=== PATIENT | male | born 1950 | race Caucasian/White ===

== ENCOUNTER 2018-01-28 13:49 | Emergency (ER) | payer MEDICARE, BC ==
[~2018-01-28] VITALS: Ht 177.8 cm; Wt 77.1 kg
[2018-01-28 14:20] LABS: BASOPHILS % (AUTO) 0.5 % (0.0-2.0); EOSINOPHILS % (AUTO) 0.8 % (0.0-6.0); HEMATOCRIT 38 % (39-51); HEMOGLOBIN 12.8 g/dL (13.5-17.5); LYMPHOCYTES # (AUTO) 1.3 /CMM (0.8-4.8); LYMPHOCYTES % (AUTO) 28.7 % (20.0-44.0); MEAN CORPUSCULAR HEMOGLOBIN 33 PG (26.0-33.0); MEAN CORPUSCULAR HGB CONC 34 g/dl (31.0-36.0); MEAN CORPUSCULAR VOLUME 97 fL (80-96); MONOCYTES # (AUTO) 0.6 /CMM (0.1-1.30); MONOCYTES % (AUTO) 12.2 % (2.0-12.0); NEUTROPHILS # (AUTO) 2.7 /CMM (1.8-8.9); NEUTROPHILS % (AUTO) 57.8 % (43.0-81.0); PLATELET COUNT (AUTO) 180 /CMM (150-450); RDW COEFFICIENT OF VARIATION 13.2 (11.5-15.0); RED BLOOD CELL COUNT(AUTO) 3.89 MIL/uL (4.5-6.0); WHITE BLOOD COUNT (AUTO) 4.6 K/uL (4.3-11.0)
[2018-01-28 14:29] LABS: CALCIUM, SERUM 8.4 mg/dL (8.5-10.1); CARBON DIOXIDE 17 mmol/L (21-32); CHLORIDE 105 mmol/L (98-107); GLUCOSE 121 mg/dL (74-106); SODIUM SERUM 136 mmol/L (136-145); UREA NITROGEN, BLOOD 19 mg/dL (7-18)
[2018-01-28] MEDS ORDERED: IV NS 0.9% 1,000 ML IV ONE (14:30)
[2018-01-28 14:39] LABS: TROPONIN I < 0.017 ng/mL (0.00-0.056)
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
[2018-01-28] MEDS ORDERED: POTASSIUM CHLORIDE 20 MEQ TAB.PRT.SR PO ONE ×2 (15:30→15:40)
[2018-01-28 16:35] VITALS: BP 137/78
--- NOTE | 2018-01-28 16:36 | NUR ---
Patient discharged to home in stable condition. Written and verbal after care instructions given. Patient verbalizes understanding of instruction.IV removed. Catheter intact and site benign. Pressure and 4x4 applied to site. No bleeding noted.
--- NOTE | 2018-02-11 10:23 | NUR ---
LATE ENTRY: 0.9% NaCl 1000 ml started at 1427(01/28/18) - end time =1527
== END 2018-01-28 16:37 | disposition home or self-care (01) ==
LOC: ER 13:53
DX: S01.01XA Laceration without foreign body of scalp, initial encounter (principal); R55 Syncope and collapse; K50.90 Crohn's disease, unspecified, without complications; Z98.890 Other specified postprocedural states; V43.52XA Car driver injured in collision with other type car in traffic accident, initial encounter; Y93.89 Activity, other specified; Y92.412 Parkway as the place of occurrence of the external cause; Y99.8 Other external cause status
CPT/HCPCS: 36415; 71045-TC; 80048-TC; 84484-TC; 85025-TC; 85378-TC; A4606; A6402; A6403; J7030; Z7610

== ENCOUNTER 2018-05-02 09:28 | Inpatient (IN) | payer MEDICARE, BC ==
[~2018-05-02] VITALS: Ht 172.7 cm; Wt 63.5 kg
[2018-05-02] MEDS ORDERED: MECLIZINE HCL 25 MG TABLET ONE (09:44)
[2018-05-02] MEDS ORDERED: ONDANSETRON HCL/PF 4 MG/2 ML VIAL ONE ×2 (09:44→10:20)
[2018-05-02 09:59] LABS: BASOPHILS % (AUTO) 0.8 % (0.0-2.0); EOSINOPHILS % (AUTO) 1.2 % (0.0-6.0); HEMATOCRIT 37 % (39-51); HEMOGLOBIN 12.4 g/dL (13.5-17.5); LYMPHOCYTES # (AUTO) 1.8 /CMM (0.8-4.8); LYMPHOCYTES % (AUTO) 28.8 % (20.0-44.0); MEAN CORPUSCULAR HGB CONC 33 g/dl (31.0-36.0); MEAN CORPUSCULAR VOLUME 98 fL (80-96); MONOCYTES # (AUTO) 0.5 /CMM (0.1-1.30); MONOCYTES % (AUTO) 8.5 % (2.0-12.0); NEUTROPHILS # (AUTO) 3.8 /CMM (1.8-8.9); NEUTROPHILS % (AUTO) 60.7 % (43.0-81.0); PLATELET COUNT (AUTO) 258 /CMM (150-450); RDW COEFFICIENT OF VARIATION 13.8 (11.5-15.0); RED BLOOD CELL COUNT(AUTO) 3.79 MIL/uL (4.5-6.0); WHITE BLOOD COUNT (AUTO) 6.2 K/uL (4.3-11.0)
[2018-05-02] MEDS ORDERED: MECLIZINE HCL 12.5 MG TABLET PO ONE (10:00)
[2018-05-02] MEDS ORDERED: IV NS 0.9% 500 ML BAG IV ONE (10:00)
[2018-05-02] MEDS ORDERED: ONDANSETRON HCL/PF 4 MG/2 ML VIAL IVP ONE (10:00)
[2018-05-02 10:07] LABS: CREATININE 1.7 mg/dL (0.6-1.3)
[2018-05-02 10:12] LABS: CALCIUM, SERUM 8.7 mg/dL (8.5-10.1)
--- NOTE | 2018-05-02 10:22 | NUR ---
pt continous to be nauseous-vomiting Dr phillips notified - medicated as ordered
[2018-05-02] MEDS ORDERED: LORAZEPAM 1 MG TABLET ONE (10:27)
[2018-05-02] MEDS ORDERED: LORAZEPAM 1 MG TABLET PO ONE (10:30)
[2018-05-02] MEDS ORDERED: ONDANSETRON HCL/PF - ER 4 MG/2 ML VIAL IV ONE (10:30)
--- NOTE | 2018-05-02 11:53 | NUR ---
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
[2018-05-02] MEDS ORDERED: ACETAMINOPHEN 325 MG TABLET PO PRN ×2 (12:00→13:30)
[2018-05-02] MEDS ORDERED: HYDROCODONE/APAP 5/325MG 1 EACH TABLET PO PRN ×2 (12:00→13:30)
[2018-05-02] MEDS ORDERED: ZOLPIDEM TARTRATE 5 MG TABLET PO PRN ×2 (12:00→13:30)
[2018-05-02] MEDS ORDERED: Z GUARD REMEDY 2 OZ OINT TP PRN ×2 (12:00→13:30)
[2018-05-02] MEDS ORDERED: MAG HYDROX/AL HYDROX/SIMETH 30 ML UDC PO PRN ×2 (12:00→13:30)
[2018-05-02] MEDS ORDERED: MAGNESIUM HYDROXIDE 30 ML UDC PO PRN ×2 (12:00→13:30)
[2018-05-02] MEDS ORDERED: ONDANSETRON HCL/PF 4 MG/2 ML VIAL IVP PRN ×2 (12:00→13:30)
[2018-05-02] MEDS ORDERED: POTASSIUM CHLORIDE 20 MEQ TAB.PRT.SR PO ONE (13:00)
[2018-05-02] MEDS ORDERED: IV 1/2NS 1000 ML 1,000 ML IV PRN ×2 (13:00→13:30)
--- NOTE | 2018-05-02 13:13 | NUR ---
Pt going to [facility]/Tele Report/Handoff to VELIA Brooks. No acute distress Transported per km fagan/ADELAIDE-Agusto
[2018-05-02 13:50] VITALS: BP 113/68
[2018-05-02 13:58] VITALS: BP 113/68
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
[2018-05-02 16:00] VITALS: BP 100/53
[2018-05-02] MEDS: POTASSIUM CHLORIDE 20 MEQ TAB.PRT.SR PO SCH ×2 (16:12→18:21)
--- NOTE | 2018-05-02 16:58 | NUR ---
CREATININE ELEVATED 1.7 Per radiology to confirm with Dr. Milligan if still wants to proceed with the test CT head with contrast and CT neck with contrast. Informed Dr. Milligan, per MD yes to do the test. Radiology to call Dr. Milligan to confirm.
--- NOTE | 2018-05-02 18:22 | NUR ---
MS RN-AGAINST MEDICAL ADVICE Patient stated he feels better now, per patient he just spoke with his Primary Doctor Michele from [facility]. and told him he does not need CT head with contrast, patient voicing to go home now and wants to leave right now. Explained to patient the risks involved in leaving the hosp and the benefits of continued treatment and hospitalization, patient refusing to stay. Per patient, tomorrow he will go to [place] for Neuro work up as per his Primary Dr. Bautista instruction to him. Informed Dr. Srini Ryan. Charge nurse is aware. Patient voluntarily signed against medical advice after formed was explained to him. Belongings checked and send with the patient upon leaving the hosp. Patient left hosp via private car accompanied by her .
== END 2018-05-02 18:20 | disposition left against medical advice (07) | DRG 73 ==
LOC: ER 09:34 → MED 13:27
DX: G90.8 Other disorders of autonomic nervous system (principal); N17.0 Acute kidney failure with tubular necrosis; K50.90 Crohn's disease, unspecified, without complications; E87.6 Hypokalemia; E86.0 Dehydration
CPT/HCPCS: 36415; 70450-TC; 80048-TC; 85025-TC; 87081-TC; A4606; J2405; J3490; J7030; J8597; Z7610